=== PATIENT | male | born 1985 | race African-American/Black ===

== ENCOUNTER 2021-02-25 14:45 | Emergency (ER) | payer BC, SELFPAY ==
--- NOTE | 2021-02-25 14:47 | ED.URI ---
HPI - URI/Sore Throat General Chief Complaint: Upper Respiratory Infection Stated Complaint: congestion Time Seen by Provider: 02/25/21 15:00 Source: patient and RN notes reviewed Mode of arrival: ambulatory Limitations: no limitations History of Present Illness HPI Narrative: 35 year old male presents with concern for cough, chills, chest congestion for 7 days. He reports he has had 2 negative Covid vaccines during the course of his illness. Reports he has been taking [id number] medications without relief. He denies shortness of breath, nasal congestion. Reports rhinorrhea. MD elicited complaint: cough Related Data Allergies Allergy/AdvReac Type Severity Reaction Status Date / Time No Known Allergies Allergy Verified 02/25/21 15:01 Review of Systems Review of Systems: CONSTITUTIONAL: Denies malaise, sweats, or fever. Reports chills EYES: Denies visual changes, redness, or discharge. ENT: Reports rhinorrhea. Denies congestion, sinus pain, otalgia and sore throat. CARDIOVASCULAR: Denies chest pain, palpitations, or edema. RESPIRATORY: Reports cough, chest congestion. Denies dyspnea. GASTROINTESTINAL: Denies abdominal pain, nausea, vomiting, diarrhea SKIN: Denies rash or itching. MUSCULOSKELETAL: Denies myalgia. NEUROLOGIC: Denies headache. All systems reviewed & are unremarkable except as noted in HPI and below PMFSH Comments At time of signature, agree with nursing past medical, surgical, social and family history. There is no relevant family history pertinent to the presenting complaint Exam Narrative: GENERAL: Well-appearing, well-nourished, and in no acute distress. HEAD: Normocephalic EYES: PERRLA, conjunctivae clear ENT: Nares clear, turbinates clear discharge. Mucous membranes moist. TM pearly desir with sharp light reflex bilaterally; no tragal tenderness. Oropharynx not erythematous without lesions. Tonsils not enlarged and without exudate, no drooling, no hoarseness, no trismus, uvula midline. NECK: Supple. No lymphadenopathy CHEST: Clear to auscultation, breath sounds equal. No wheezing, rhonchi, rales, or stridor. No respiratory distress, speaks in full sentences. HEART: Regular rate and rhythm. No murmur heard. SKIN: Warm, dry, no rash. NEURO: Alert and oriented x3. PSYCH: Normal mood and affect Course Course Emergency Course: Patient is aware of diagnosis, understands and agrees to treatment plan. Anticipatory guidance given. Patient agrees to follow-up as directed and is aware of reasons to seek care at the emergency department. Portions of this record may have been created with voice recognition software Vital Signs Vital signs: Reviewed. MDM - URI/Sore Throat MDM Narrative Medical decision making narrative: Differential diagnosis considered: Whiting virus, strep pharyngitis, allergic rhinitis, upper respiratory tract infection, sinusitis, rhinosinusitis, nasopharyngitis. viral pharyngitis, otitis media, otitis externa, pneumonia, bronchitis, viral cough syndrome, viral syndrome, and influenza. Exam findings show no acute concerns or changes; patient is non-toxic appearing and is in no distress. Patient is appropriate for outpatient treatment and follow-up. Critical Care Time Critical Care Time Critical Care Time: No Discharge Plan Discharge Clinical Impression: Bronchitis Patient Disposition: Home, Self-Care Condition: Stable Instructions: Acute Bronchitis (ED) Additional Instructions: Viral illness may last between 7-21 days; antibiotics do not cure viral illness and are NOT recommended at this time. Recommend antihistamine such as Benadryl at night time and Zyrtec or Romy during the day Also, recommend symptomatic treatment includes: rest, fluids, and increase humidity of the air at home. Recommend Acetaminophen as directed on the bottle to reduce fever, pain, headache. Avoid smoking/second-hand smoke. Please schedule a follow-up visit with your personal physician for fur
[2021-02-25 14:56] VITALS: BP 135/84; PULSE 72; RESP 16; TEMP 37.3; O2SAT 100
== END 2021-02-25 15:30 | disposition home or self-care (01) ==
PROVIDERS: Emergency Provider Nurse Practitioner
DX: J40 Bronchitis, not specified as acute or chronic (principal)
CPT/HCPCS: 99203; G0463

== ENCOUNTER 2022-01-14 09:31 | Emergency (ER) | payer BC, SELFPAY ==
[2022-01-14 09:40] VITALS: BP 145/83; PULSE 69; RESP 16; TEMP 36.5; O2SAT 99
--- NOTE | 2022-01-14 10:01 | ED.EAR ---
HPI - Ear Problem General Chief complaint: Ear Stated complaint: sore throat Time Seen by Provider: 01/14/22 09:52 Source: patient Mode of arrival: ambulatory Limitations: no limitations History of Present Illness HPI Narrative: Patient presents today complaining of right ear pain x2 days that has been intermittent. Hearing is unchanged. Denies any drainage. Currently rates his pain 8/10 and has been taking Advil with some relief. Denies any additional upper respiratory symptoms such as cough, congestion, rhinorrhea, sore throat. Related Data Allergies Allergy/AdvReac Type Severity Reaction Status Date / Time No Known Allergies Allergy Verified 02/25/21 15:01 Review of Systems Review of Systems: CONSTITUTIONAL: Denies body aches, fever, chills, or sweats. EYES: Denies visual changes, redness, or discharge. ENT: Denies rhinorrhea, congestion, sore throat. + Right ear pain CARDIOVASCULAR: Denies chest pain, palpitations, or edema. RESPIRATORY: Denies cough or dyspnea. GASTROINTESTINAL: Denies abdominal pain, nausea, vomiting, or diarrhea. GENITOURINARY: Denies dysuria or hematuria. SKIN: Denies rash, itching, or wounds. MUSCULOSKELETAL: Denies back pain, joint pain, or myalgia. NEUROLOGIC: Denies headache, numbness, tingling, or weakness. PSYCH: Denies depression or anxiety. PMFSH Comments At time of signature, I have reviewed and agree with nursing past medical, surgical, social and family history unless otherwise noted. Please see nursing chart for further information. There is no relevant family history pertinent to the presenting complaint Exam Narrative: GENERAL: Well-appearing, well-nourished, and in no acute distress. HEAD: Normocephalic, atraumatic. EYES: EOMI. No redness or drainage. Conjunctivae normal. ENT: Mucous membranes pink and moist. Nares clear. No rhinorrhea. Left TM normal. Right TM dull and desir. Throat normal. Uvula midline. NECK: Normal AROM. Supple. No lymphadenopathy. CHEST: No respiratory distress. EXTREMITIES: Normal range of motion. No edema. SKIN: Warm, dry, no rash. Capillary refill normal. Normal skin turgor. NEURO: No focal deficits. Alert and oriented x3. Gait steady. PSYCH: Normal affect. No signs of depression or anxiety. Course Course Level of Care: Express Care Visit Vital Signs Vital signs: Vital Signs Temperature 97.7 F 01/14/22 09:40 Pulse Rate 69 01/14/22 09:40 Respiratory Rate 16 01/14/22 09:40 Blood Pressure 145/83 H 01/14/22 09:40 Pulse Oximetry 99 01/14/22 09:40 Oxygen Delivery Room Air 01/14/22 09:40 Temperature 97.7 F 01/14/22 09:40 Pulse Rate 69 01/14/22 09:40 Respiratory Rate 16 01/14/22 09:40 Blood Pressure 145/83 H 01/14/22 09:40 Pulse Oximetry 99 01/14/22 09:40 Oxygen Delivery Room Air 01/14/22 09:40 Reviewed. Pt has been instructed to follow up with his PCP regarding his elevated blood pressure today. Medical Decision Making Differential Diagnosis Differential Diagnosis: Otitis media, otitis externa, ruptured TM, serous otitis, eustachian tube dysfunction Vital Signs Vital Signs: Vital Signs Temperature 97.7 F 01/14/22 09:40 Pulse Rate 69 01/14/22 09:40 Respiratory Rate 16 01/14/22 09:40 Blood Pressure 145/83 H 01/14/22 09:40 Pulse Oximetry 99 01/14/22 09:40 Oxygen Delivery Room Air 01/14/22 09:40 Temperature 97.7 F 01/14/22 09:40 Pulse Rate 69 01/14/22 09:40 Respiratory Rate 16 01/14/22 09:40 Blood Pressure 145/83 H 01/14/22 09:40 Pulse Oximetry 99 01/14/22 09:40 Oxygen Delivery Room Air 01/14/22 09:40 Critical Care Time Critical Care Time Critical Care Time: No Discharge Plan Discharge Clinical Impression: Acute right otitis media Patient Disposition: Home, Self-Care Condition: Stable Instructions: Antibiotic Form, Ear Infection (GEN) Additional Instructions: Please take the amoxicillin as prescribed until gone. Take so
== END 2022-01-14 10:07 | disposition home or self-care (01) ==
PROVIDERS: Emergency Provider Nurse Practitioner
DX: H66.91 Otitis media, unspecified, right ear (principal)
CPT/HCPCS: 99213; G0463

== ENCOUNTER 2024-04-17 15:59 | Emergency (ER) | payer BC, SELFPAY ==
[2024-04-17 16:10] VITALS: BP 141/74; PULSE 97; RESP 16; TEMP 37.9; O2SAT 99
--- NOTE | 2024-04-17 16:36 | ED_ITS ---
HPI - URI/Sore Throat General Chief Complaint: Upper Respiratory Infection Stated Complaint: Flu Symptoms Time Seen by Provider: 04/17/24 16:29 Source: patient and RN notes reviewed Mode of arrival: ambulatory Limitations: no limitations History of Present Illness HPI Narrative: Patient presents today with a 4 day history of body aches, congestion, chills, sweats, mild cough, ear clogging. He has tried Mucinex, DayQuil, NyQuil, TheraFlu without much relief. Significant other works at hospital and has been ill recently. Related Data Allergies Allergy/AdvReac Type Severity Reaction Status Date / Time No Known Allergies Allergy Verified 04/17/24 16:18 Review of Systems Review of Systems: CONSTITUTIONAL: + body aches, chills, EYES: Denies visual changes, redness, or discharge. ENT: Denies rhinorrhea, sore throat, or otalgia.+ congestion, ear CARDIOVASCULAR: Denies chest pain, palpitations, or edema. RESPIRATORY: Denies dyspnea.+ cough GASTROINTESTINAL: Denies abdominal pain, nausea, vomiting, or diarrhea. GENITOURINARY: Denies dysuria or hematuria. SKIN: Denies rash, itching, or wounds. MUSCULOSKELETAL: Denies back pain, joint pain, or myalgia. NEUROLOGIC: Denies headache, numbness, tingling, or weakness. PSYCH: Denies depression or anxiety. PMFSH Comments At time of signature, I have reviewed and agree with nursing past medical, surgical, social and family history unless otherwise noted. Please see nursing chart for further information. There is no relevant family history pertinent to the presenting complaint Exam Narrative: GENERAL: Mildly ill-appearing, well-nourished, and in no acute distress. HEAD: Normocephalic, atraumatic. EYES: EOMI. No redness or drainage. Conjunctivae normal. ENT: Mucous membranes pink and moist. Nares congested. No rhinorrhea. TMs normal bilaterally. Throat normal. Uvula midline. NECK: Normal AROM. Supple. No lymphadenopathy. CHEST: No respiratory distress. Clear to auscultation. HEART: Regular rate and rhythm. No murmur appreciated. EXTREMITIES: Normal range of motion. No edema. SKIN: Warm, dry, no rash. Capillary refill normal. Normal skin turgor. NEURO: No focal deficits. Alert and oriented x3. Gait steady. PSYCH: Normal affect. No signs of depression or anxiety. Course Course Level of Care: Express Care Visit Vital Signs Vital signs: Vital Signs Temperature 100.2 F H 04/17/24 16:10 Pulse Rate 97 04/17/24 16:10 Respiratory Rate 16 04/17/24 16:10 Blood Pressure 141/74 H 04/17/24 16:10 Pulse Oximetry 99 04/17/24 16:10 Oxygen Delivery Room Air 04/17/24 16:10 Temperature 100.2 F H 04/17/24 16:10 Pulse Rate 97 04/17/24 16:10 Respiratory Rate 16 04/17/24 16:10 Blood Pressure 141/74 H 04/17/24 16:10 Pulse Oximetry 99 04/17/24 16:10 Oxygen Delivery Room Air 04/17/24 16:10 Reviewed MDM - URI/Sore Throat MDM Narrative Medical decision making narrative: Influenza a positive. Patient is out of the window for Tamiflu. Recommend starting ibuprofen to help with his body aches and fever as it may be more effective than Tylenol containing products. Prescription sent to pharmacy. Anticipatory guidance given. Differential Diagnosis Differential diagnosis: Likely upper respiratory infection, otitis media, viral infection, influenza and other (COVID-19) Lab Data Attestation: I reviewed the patient's lab results. Lab results narrative: Influenza a positive. COVID negative Critical Care Time Critical Care Time Critical Care Time: No Discharge Plan Discharge Clinical Impression: Influenza A Patient Disposition: Home, Self-Care Condition: Stable Instructions: Influenza (DC) Additional Instructions: You have tested positive for influenza A. Please continue [id number] medication as needed for your symptoms. Take ibuprofen as prescribed. Rest and stay hydrated. Follow-up with your PCP in 5 days if symptoms are not improved. Go to the ER immediately if symptoms worsen to include shortness breath, difficulty swallowing. Your blood pressure was elevated above 120/80 today at Urgent Care. This puts you above the threshold for follow up. Please schedule a followup visit with your personal physician as soon as possible, for further evaluation and treatment. Even blood pressure exceeding 120/80 may indicate pre-hypertension. Patient Language: Anguill[place] Prescriptions: New ibuprofen 600 mg tablet 600 mg PO TID PRN (Reason: fever or pain) Qty: 20 0RF Follow-up/Referrals: UNKNOWN,DOCTOR [Primary Care Provider] - Stand Alone Forms: Work/School Release IP Time of Disposition: 16:41
[2024-04-17 16:49] LABS: EDCOVIDSCREEN Negative (Negative); EDINFLUASCREEN Positive (Negative); EDINFLUBSCREEN Negative (Negative)
== END 2024-04-17 16:45 | disposition home or self-care (01) ==
PROVIDERS: Emergency Provider Nurse Practitioner
DX: J10.1 Influenza due to other identified influenza virus with other respiratory manifestations (principal); Z20.822 Contact with and (suspected) exposure to COVID-19
CPT/HCPCS: 87426; 87804; 99213; G0463

== ENCOUNTER 2024-04-24 00:59 | Emergency (ER) | payer BC, SELFPAY ==
--- OUTSIDE RECORDS SUMMARY | 2024-04-24 01:02 | XMS_ITS | Clinical Summary ---
Author Organization [facility] Address [address] [place] [address] Care Team Providers Care Water Resources Technical Officer Name Role Phone Unavailable Primary Care Provider Unavailabl e Source Comments [facility],non-owned Affiliates and Associated Physician Practices is amultiple site organization consisting of ambulatory clinics and hospital sitesin [place], [place], [place] and [place]. This disclosure is being madepursuant to the Care Everywhere program and may not contain all information available regarding this patient. Last updated 17.[facility] Social History Tobacco Use Types Packs/Day Years Used Date Smoking Tobacco: Every Day Cigarettes Alcohol Use Standard Drinks/Week Comments Yes 0 (1 standard drink = 0.6 oz pur e alcohol) Sex and Gender Information Value Date Recorded Sex Assigned at Not on file Gender Identity Not on file Sexual Orientation Not on file Last Filed Vital Signs Vital Sign Reading Time Taken Comments Blood Pressure 152/81 05/17/2016 10:34 PM CAD OPERATOR Pulse 77 05/17/2016 10:34 PM CAD OPERATOR Temperature 36.9 ??C (98.4 ??F) 05/17/2016 10:[address] Respiratory Rate - - Oxygen Saturation 99% 05/17/2016 10:34 PM CAD OPERATOR Inhaled Oxygen Concentration - - Weight 74.8 kg (165 lb) 05/17/2016 10:34 PM CAD OPERATOR Height 167.6 cm (5' 6 ) 05/17/2016 10:34 PM CAD OPERATOR Body Mass Index 26.63 05/17/2016 10:34 PM CAD OPERATOR Plan of Treatment Health Maintenance Due Date Last Done Comments HIV SCREENING 07/24/2002 HEPATITIS C SCREENING 07/20/2005 DTAP/TDAP/TD VACCINES (1 - Tdap) 07/24/2006 HEPATITIS B VACCINE (1 of 3 - 19+ 3-dose series) 07/24/2006 PNEUMOCOCCAL VACCINE (1 of 2 - PCV) 07/24/2006 COVID-19 VACCINE (2023-2 5 season) 2023 INFLUENZA VACCINE (#1) 2023 DEPRESSION SCREENING 03/29/2024 ZOSTER VACCINE (1 of 2) 07/24/2037 HIB VACCINE Aged Out No longer eligi ble based on patient's age to complete this topic HPV VACCINE Aged Out No longer eligi ble based on patient's age to complete this topic MENINGOCOCCAL (Group B) VACCINE Aged Out No longer eligible based on patient's age to complete this topic MENINGOCOCCAL VACCINE Aged Out No quita susan eligible based on patient's age to complete this topic
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
--- OUTSIDE RECORDS SUMMARY | 2024-04-24 01:02 | XMS_ITS | Clinical Summary ---
Author Organization [facility] Address [address] [place] [address] Care Team Providers Care Diamond Cleaner Name Role Phone Unavailable Primary Care Provider Unavailabl e Social History Tobacco Use Types Packs/Day Years Used Date Smoking Tobacco: Never Assessed Sex and Gender Information Value Date Recorded Sex Assigned at Not on file Legal Sex Male 11:44 PM CDT Gender Identity Not on file Sexual Orientation Not on file Plan of Treatment Health Maintenance Due Date Last Done Comments DTAP/TDAP/TD VACCINES (1 - Tdap) 07/24/2006 HEPATITIS B VACCINES (1 of 3 - 19+ 3-dose series) 07/24/2006 INFLUENZA VACCINE (#1) 2023 HPV VACCINES Aged Out No longer eligi ble based on patient's age to complete this topic PNEUMOCOCCAL VACCINE 0-64 YEARS Aged Out No longer eligible based on patient's age to complete this topic
--- OUTSIDE RECORDS SUMMARY | 2024-04-24 01:02 | XMS_ITS | Encounter Summary ---
Author Organization [facility] Address [address] [place] [address] Care Team Providers Care Controls Operator Molded Goods Name Role Phone Unavailable Primary Care Provider Unavailabl e Prior Encounters Date Type Department Care Team Description 01/27/2022 10:15 AM CDT Office Visit [facility] [address] [place] [address] Rufina Beyer DDS 01/21/2022 Travel 01/21/2022 8:00 AM CDT Office Visit [facility] [address] [place] [address] Bonny Gilliam DDS Last Filed Vital Signs Vital Sign Reading Time Taken Comments Blood Pressure 105/68 01/27/2022 11:26 AM CDT Pulse 52 01/27/2022 11:26 AM CDT Temperature - - Respiratory Rate - - Oxygen Saturation - - Inhaled Oxygen Concentration - - Weight 77.1 kg (170 lb) 01/27/2022 11:26 AM CDT Height 165.1 cm (5' 5 ) 01/27/2022 11:26 AM CDT Body Mass Index 28.29 01/27/2022 11:26 AM CDT Plan of Treatment Not on file Procedures Procedure Name Priority Date/Time Associated Diagnosis Comments 31 PLACEMENT OF INTRA-SOCKET BIOLOGICAL DRESSING TO AID IN HEMOSTASIS OR CLOT STABILIZATION, PER SITE Routine 01/27/2022 10:15 AM CDT ORAL SURG CONSULT Routine 01/27/2022 10: 15 AM CDT 31 EXTRACTION, ERUPTED TOOTH REQUIRING REMOVAL OF BONE AND/OR SECTIONING OF TOOTH Routine 01/27/2022 10:15 AM CDT PANORAMIC RADIOGRAPHIC IMAGE Routine 01/21/2022 8:00 AM CDT BITEWING - SINGLE RADIOGRAPHIC IMAGE Routine 01/21/2022 8:00 AM CDT ADDITIONAL X-RAY Routine 01/21/2022 8:00 AM CDT SINGLE X-RAY Routine 01/21/2022 8:00 AM CDT LIMITED ORAL EVALUATION - PROBLEM FOCUSED Routine 01/21/2022 8:00 AM CDT Visit Diagnoses Not on file Insurance [place]
--- OUTSIDE RECORDS SUMMARY | 2024-04-24 01:02 | XMS_ITS | Referral Summary ---
Author Organization [facility] Address [address] [place] [address] Care Team Providers Care Fulfillment Representative Name Role Phone Unavailable Primary Care Provider Unavailabl e Source Comments [facility],non-owned Affiliates and Associated Physician Practices is amultiple site organization consisting of ambulatory clinics and hospital sitesin [place], [place], [place] and [place]. This disclosure is being madepursuant to the Care Everywhere program and may not contain all information available regarding this patient. Last updated 17.[facility] Social History Tobacco Use Types Packs/Day [...] Comments Blood Pressure 152/81 05/17/2016 10:34 PM MILLWRIGHT SUPERVISOR Pulse 77 05/17/2016 10:34 PM MILLWRIGHT SUPERVISOR Temperature 36.9 ??C (98.4 ??F) 05/17/2016 10:[address] Respiratory Rate - - Oxygen Saturation 99% 05/17/2016 10:34 PM MILLWRIGHT SUPERVISOR Inhaled Oxygen Concentration - - Weight 74.8 kg (165 lb) 05/17/2016 10:34 PM MILLWRIGHT SUPERVISOR Height 167.6 cm (5' 6 ) 05/17/2016 10:34 PM MILLWRIGHT SUPERVISOR Body Mass Index 26.63 05/17/2016 10:34 PM MILLWRIGHT SUPERVISOR Plan of Treatment Not on file
--- OUTSIDE RECORDS SUMMARY | 2024-04-24 01:02 | XMS_ITS ---
Author Organization [facility] Address [address] [place] [address] Care Team Providers Care Wire Products Inspector Name Role Phone Unavailable Unavailable Unavailable Surgery Details Not on file Complications Check Surgery Details section. Procedure Estimated Blood Loss Check Surgery Details section. Procedure Findings Check Surgery Details section. Procedure Specimens Taken Check Surgery Details section.
--- OUTSIDE RECORDS SUMMARY | 2024-04-24 01:02 | XMS_ITS | Referral Summary ---
Author Organization [facility] Address [address] [place] [address] Care Team Providers Care Corporate Consultant Name Role Phone Unavailable Primary Care Provider Unavailabl e Allergies No known active allergies Medications HYDROcodone-acet aminophen (NORCO) 5-325 mg tablet Take 1 tablet by mouth every 6 (six) hours if needed for severe pain. 12 tablet 01/27/2022 Active ibuprofen (ADVIL,MOTRIN) 600 mg tablet Take 1 tablet (600 mg total) by mouth every 6 (six) hours. 30 tablet 01/27/2022 Active Active Problems No known active problems Social History Tobacco Use Types Packs/Day Years Used Date Smoking Tobacco: Every Day Cigarettes 4 5 Tobacco Cessation:Ready to Q uit: Not Asked; Counseling Given: Not Answered Sex and Gender Information Value Date Recorded Sex Assigned at Not on file Legal Sex Male 9:11 AM PDT Gender Identity Not on file Sexual Orientation [...] Procedure Name Priority Date/Time Associated Diagnosis Comments PANORAMIC RADIOGRAPHIC IMAGE Routine 01/21/2022 8:00 AM CDT from Last 3 Months or Most Recently Relevant to Health Maintenance [phone]
--- OUTSIDE RECORDS SUMMARY | 2024-04-24 01:02 | XMS_ITS | Clinical Summary ---
Author Organization [facility] Address [address] [place] [address] Care Team Providers Care Dolly Pusher Name Role Phone Unavailable Primary Care Provider [...] 01/27/2022 11:26 AM CDT Plan of Treatment Health Maintenance Due Date Last Done Comments Dental Oral Exam 1987 Dental Prophylaxis 1987 Dental X-Ray: Bitewings 1987 Dental X-Ray: Full Mouth 1987 Dental X-Ray: Panoramic 01/22/2025 01/21/2022 Meningococcal B Vaccine Aged Out No l onger eligible based on patient's age to complete this topic Procedures Procedure Name Priority Date/Time Associated Diagnosis Comments PANORAMIC RADIOGRAPHIC IMAGE Routine 01/21/2022 8:00 AM CDT from Last 3 Months or Most Recently Relevant to Health Maintenance [place]
--- OUTSIDE RECORDS SUMMARY | 2024-04-24 01:02 | XMS_ITS | CCD ---
Author Organization [facility] Address [address] [place] [id number] Care Team Providers Care Scientific Artist Name Role Phone Unavailable Primary Care Provider [...]
[2024-04-24 01:05] VITALS: BP 157/82; PULSE 87; RESP 20; TEMP 36.9; O2SAT 100
--- NOTE | 2024-04-24 05:06 | PC.NURSE ---
Patient called for room assignment, no answer and not seen in waiting room. Patient marked as left without being seen, triaged.
--- OUTSIDE RECORDS SUMMARY | 2024-04-24 05:10 | XMS_ITS | Encounter Summary ---
Author Organization [facility] Address [address] [place] [address] Care Team Providers Care Retail Field Representative Name Role Phone Unavailable Primary Care Provider Unavailabl e Prior Encounters Date Type Department Care Team Description 01/27/2022 10:15 AM CDT Office Visit [facility] [address] [place] [address] Rufina Beyer DDS 01/21/2022 Travel 01/21/2022 8:00 AM CDT Office Visit [facility] [address] [place] [address] Bonny Gilliam DDS Last Filed [...]
--- OUTSIDE RECORDS SUMMARY | 2024-04-24 05:10 | XMS_ITS | Clinical Summary ---
Author Organization [facility] Address [address] [place] [address] Care Team Providers Care Fur Examiner Name Role Phone Unavailable Primary Care Provider [...]
--- OUTSIDE RECORDS SUMMARY | 2024-04-24 05:10 | XMS_ITS | Patient Health Summary ---
Author Organization [facility] Address [address] [place] [address] Care Team Providers Care Senior Information Security Consultant Name Role Phone Unavailable Primary Care Provider Unavailabl e Note from [facility],non-owned Affiliates and Associated Physician Practices is amultiple site organization consisting of ambulatory clinics and hospital sitesin [place], [place], [place] and [place]. This disclosure is being madepursuant to the Care Everywhere program and may not contain all information available regarding this patient. Last updated 17.[facility] Social History Tobacco Use Types Packs/Day [...] Comments Blood Pressure 152/81 05/17/2016 10:34 PM PHARMACIST'S AIDE Pulse 77 05/17/2016 10:34 PM PHARMACIST'S AIDE Temperature 36.9 ??C (98.4 ??F) 05/17/2016 10:[address] Respiratory Rate - - Oxygen Saturation 99% 05/17/2016 10:34 PM PHARMACIST'S AIDE Inhaled Oxygen Concentration - - Weight 74.8 kg (165 lb) 05/17/2016 10:34 PM PHARMACIST'S AIDE Height 167.6 cm (5' 6 ) 05/17/2016 10:34 PM PHARMACIST'S AIDE Body Mass Index 26.63 05/17/2016 10:34 PM PHARMACIST'S AIDE Procedures * XR ANKLE RIGHT 3VW OR MORE(Performed 05/17/2016) * XR FOOT RIGHT 3VW OR MORE(Performed 05/17/2016) Results * XR ANKLE RIGHT 3VW OR MORE (05/17/2016 11:27 PM PHARMACIST'S AIDE) Anatomical Region Laterality Modality Lower Extremity Other Impressions 05/18/2016 11:21 AM PHARMACIST'S AIDE IMPRESSION: No acute fracture or dislocation identified. Dictated by Isaias Zendejas MD (resident care manager rn). This report was approved ??by Isaias Zendejas M.D. ?? on 05/18/2016 9:[address] ALONDRA Duong M.D. have personally reviewed and interpreted this examination/study. This report was electronically signed by ALONDRA GLASS M.D. ??on 05/18/2016 11:21 AM . Narrative 05/18/2016 11:21 AM PHARMACIST'S AIDE EXAMINATION: 1. Right ankle, 3 view 2. [...] dislocation identified. Dictated by Isaias Zendejas MD (resident care manager rn). This report was approved by Isaias Zendejas M.D. on 05/18/2016 9:[address] ALONDRA Duong M.D. have personally reviewed and interpreted thisexamination/study. This report was electronically signed by ALONDRA GLASS M.D. on 05/18/201611:21 AM . Candi Dempsey MD DIAGNOSTIC IMAGING O RDERABLES * XR FOOT RIGHT 3VW OR MORE (05/17/2016 11:27 PM PHARMACIST'S AIDE) Anatomical Region Laterality Modality Ankle / Foot Other Impressions 05/18/2016 11:21 AM PHARMACIST'S AIDE IMPRESSION: No acute fracture or dislocation identified. Dictated by Isaias Zendejas MD (resident care manager rn). This report was approved ??by Isaias Zendejas M.D. ?? on 05/18/2016 9:[address] ALONDRA Duong M.D. have personally reviewed and interpreted this examination/study. This report was electronically signed by ALONDRA GLASS M.D. ??on 05/18/2016 11:21 AM . Narrative 05/18/2016 11:21 AM PHARMACIST'S AIDE EXAMINATION: 1. Right ankle, 3 view 2. [...]
--- OUTSIDE RECORDS SUMMARY | 2024-04-24 05:10 | XMS_ITS | Referral Summary ---
Author Organization [facility] Address [address] [place] [address] Care Team Providers Care Replanter Name Role Phone Unavailable Primary Care Provider [...] Maintenance [phone]
--- OUTSIDE RECORDS SUMMARY | 2024-04-24 05:10 | XMS_ITS | CCD ---
Author Organization [facility] Address [address] [place] [address] Care Team Providers Care Director Of Science Name Role Phone Unavailable Primary Care Provider [...]
--- OUTSIDE RECORDS SUMMARY | 2024-04-24 05:10 | XMS_ITS | Referral Summary ---
Author Organization [facility] Address [address] [place] [address] Care Team Providers Care Padded Box Sewer Name Role Phone Unavailable Primary Care Provider Unavailabl e Source Comments [facility],non-owned Affiliates and Associated Physician Practices is amultiple site organization consisting of ambulatory clinics and hospital sitesin [place], [place], [place] and [place]. This disclosure is being madepursuant to the Care Everywhere program and may not contain all information available regarding this patient. Last updated 17.[facility] Social History Tobacco Use Types Packs/Day [...] Comments Blood Pressure 152/81 05/17/2016 10:34 PM ADZING AND BORING MACHINE OPERATOR Pulse 77 05/17/2016 10:34 PM ADZING AND BORING MACHINE OPERATOR Temperature 36.9 ??C (98.4 ??F) 05/17/2016 10:[address] Respiratory Rate - - Oxygen Saturation 99% 05/17/2016 10:34 PM ADZING AND BORING MACHINE OPERATOR Inhaled Oxygen Concentration - - Weight 74.8 kg (165 lb) 05/17/2016 10:34 PM ADZING AND BORING MACHINE OPERATOR Height 167.6 cm (5' 6 ) 05/17/2016 10:34 PM ADZING AND BORING MACHINE OPERATOR Body Mass Index 26.63 05/17/2016 10:34 PM ADZING AND BORING MACHINE OPERATOR Plan of Treatment Not on file
--- OUTSIDE RECORDS SUMMARY | 2024-04-24 05:10 | XMS_ITS | Clinical Summary ---
Author Organization [facility] Address [address] [place] [address] Care Team Providers Care Healthcare Receptionist Name Role Phone Unavailable Primary Care Provider [...]
--- OUTSIDE RECORDS SUMMARY | 2024-04-24 05:10 | XMS_ITS | Clinical Summary ---
Author Organization [facility] Address [address] [place] [address] Care Team Providers Care Shrub Grower Name Role Phone Unavailable Primary Care Provider Unavailabl e Source Comments [facility],non-owned Affiliates and Associated Physician Practices is amultiple site organization consisting of ambulatory clinics and hospital sitesin [place], [place], [place]. This disclosure is being madepursuant to the Care Everywhere program and may not contain all information available regarding this patient. Last updated 17.[facility] Social History Tobacco Use Types Packs/Day [...] Comments Blood Pressure 152/81 05/17/2016 10:34 PM CLEANING MATRON Pulse 77 05/17/2016 10:34 PM CLEANING MATRON Temperature 36.9 ??C (98.4 ??F) 05/17/2016 10:[address] Respiratory Rate - - Oxygen Saturation 99% 05/17/2016 10:34 PM CLEANING MATRON Inhaled Oxygen Concentration - - Weight 74.8 kg (165 lb) 05/17/2016 10:34 PM CLEANING MATRON Height 167.6 cm (5' 6 ) 05/17/2016 10:34 PM CLEANING MATRON Body Mass Index 26.63 05/17/2016 10:34 PM CLEANING MATRON Plan of Treatment Health Maintenance Due Date [...]
--- OUTSIDE RECORDS SUMMARY | 2024-04-24 05:10 | XMS_ITS ---
Author Organization [facility] Address [address] [place] [address] Care Team Providers Care Manager Cardiac Cath Name Role Phone Unavailable Unavailable Unavailable Surgery Details Not on file Complications Check Surgery Details section. Procedure Estimated Blood Loss Check Surgery Details section. Procedure Findings Check Surgery Details section. Procedure Specimens Taken Check Surgery Details section.
== END 2024-04-24 05:09 | disposition left against medical advice (07) ==
LOC: ANHED 05:09
DX: R11.2 Nausea with vomiting, unspecified (principal)
CPT/HCPCS: 99199